=== PATIENT | female | born 1955 | race Caucasian/White ===

== ENCOUNTER → 2017-12-21 | Outpatient (CLI) | payer BC ==
--- NOTE | 2017-12-21 17:16 | XR ---
First digit left hand HISTORY: Trauma and pain 3 views of the first digit of the left hand There is degenerative change at the carpometacarpal joint of the first digit with joint space loss, s ubchondral sclerosis and geode formation. Ossific density present lateral to the joint is well-cortic ated and not felt likely to be acute. Alignment is maintained. Bone mineralization otherwise normal. 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
== END | disposition home or self-care (01) ==
LOC: RADXRMAIN 15:52
PROVIDERS: ATTEND Family Medicine
DX: M19.042 Primary osteoarthritis, left hand (principal)

== ENCOUNTER 2023-08-10 00:16 | Emergency (ER) | payer BC ==
[2023-08-10 00:58] VITALS: TEMP 97.5
[2023-08-10] MEDS: DIPH,PERTUS(ACELL)TETVAC-LF 0.5 ML VIAL IM ONE (01:43)
[2023-08-10] MEDS ORDERED: VANCOMYCIN IV PER PHARMACY 1 EACH MISC MISCELLANE PRN (02:52)
[2023-08-10] MEDS: LEVOFLOXACIN 500MG-D5W PMX 500 MG in DEXTROSE/WATER 1 100ML.BAG IVPB STA (03:01)
--- NOTE | 2023-08-10 03:13 | ED ---
Wound/Laceration HPI - General Chief Complaint: Wound/Laceration Stated Complaint: Fall, head injury, ETOH Time Seen by Provider: 08/10/23 00:34 Source: patient, EMS Mode of arrival: EMS Limitations: altered mental status - History of Present Illness Initial Comments: 67-year-old female presenting from home after a fall from standing. The patient is currently intoxicated, states that she drank "a little bit" tonight. She states that her dog ran between her legs and caused her to fall into the toilet hitting her face. She does not recall the exact time that the incident occurred. She denies any loss of consciousness or use of blood thinners. Patient initially refused c-collar by EMS, she is agreeable at this time and is placed in a c-collar in our facility. She is complaining of no pain. She is unable to see out of her right eye. There is significant discharge and bleeding from the right eye. The pupil is fixed and nonreactive. She is able to see light peripherally. Patient called EMS on her own after she felt blood on her face at home. - Related Data Allergies Allergy/AdvReac Type Severity Reaction Status Date / Time Penicillins Allergy Anaphylaxis Verified 08/10/23 00:34 Review of Systems ROS Statement: Those systems with pertinent positive or pertinent negative responses have been documented in the HPI. ROS Other: All systems not noted in ROS Statement are negative. Past Medical History Past Medical History: No Reported History, Unable to Obtain History of Any Multi-Drug Resistant Organisms: None Reported Past Surgical History: No Surgical Hx Reported, Unable to Obtain Past Psychological History: No Psychological Hx Reported, Unable to Obtain Smoking Status: Current every day smoker, Former smoker Past Alcohol Use History: Occasional Past Drug Use History: Cocaine General Exam General appearance: alert, in no apparent distress Head exam: Present: other (Patient has a 2 cm laceration above the right eyebrow) Eye exam: Present: periorbital swelling, other (There is significant chemosis and disfigurement of the right eye. There is bleeding and watering from the right eye. The patient is unable to open eye on her own. The pupil is fixed dilated nonreactive. No obvious teardrop shaped pupil.). Absent: normal appearance, PERRL, EOMI Pupils: Present: unequal. Absent: normal accommodation Neck exam: Present: normal inspection Respiratory exam: Absent: respiratory distress Cardiovascular Exam: Present: regular rate Neurological exam: Present: alert, altered (Intoxicated, pleasant and cooperative) Course Vital Signs 08/10/23 08/10/23 08/10/23 00:18 02:54 03:43 Temperature 97.5 F L 97.5 F L Pulse Rate 75 64 69 Respiratory 16 19 18 Rate Blood Pressure 191/97 160/78 155/76 O2 Sat by Pulse 96 97 99 Oximetry Medical Decision Making - Medical Decision Making Was pt. sent in by a medical professional or institution (, NICHOLAS, TRACTOR TRAILER MOVING [employer]AN [employer]IVER, urgent care, hospital, or correction...) When possible be specific @ -no Did you speak to anyone other than the patient for history (EMS, parent, family, police, friend...)? What history was obtained from this source @ -EMS Did you review nursing and triage notes (agree or disagree)? Why? @ -I reviewed and agree with nursing and triage notes Were old charts reviewed (outside hosp., previous admission, EMS record, old EKG, old radiological studies, urgent care reports/EKG's, correction records)? Report findings @ -No old charts were reviewed Differential Diagnosis (chest pain, altered mental status, abdominal pain women, abdominal pain men, vaginal bleeding, weakness, fever, dyspnea, syncope, headache, dizziness, GI bleed, back pain, seizure, CVA, palpatations, mental health, musculoskeletal)? @ -Differential includes corneal abrasion, globe rupture, foreign body, traumatic hyphema, this is not an all-inclusive list EKG interpreted by me (3pts min.). @ -As above X-rays interpreted by me (1pt min.). @ -None done CT interpreted by me (1pt min.). @ -CT brain C-spine and facial bones is obtained, formal report is pending. By my interpretation there does appear to be hemorrhaging into the right globe. U/S interpreted by me (1pt. min.). @ -None done What testing was considered but not performed or refused? (CT, X-rays, U/S, labs)? Why? @ -None What meds were considered but not given or refused? Why? @ -None Did you discuss the management of the patient with other professionals (professionals i.e. , NICHOLAS, TRACTOR TRAILER M[employer]ING [employer]IVER, lab, RT, psych nurse, social welfare administrator, vineyard tender, teacher, emergency communications officer, family independence case manager)? Give summary @ -I spoke with Dr. Contreras at [facility] who accepted transfer. I also spoke with their imaging assistant on-call regarding this patient, they advised starting vancomycin and Levaquin Was smoking cessation discussed for >3mins.? @ -No Was critical care preformed (if so, how long)? @ -No Were there social determinants of health that impacted care today? How? (Homelessness, low income, unemployed, alcoholism, drug addiction, transportation, low edu. Level, literacy, decrease access to med. care, [facility], rehab)? @ -No Was there de-escalation of care discussed even if they declined (Discuss DNR or withdrawal of care, Hospice)? DNR status @ -No What co-morbidities impacted this encounter? (DM, HTN, Smoking, COPD, CAD, Cancer, CVA, ARF, Chemo, Hep., AIDS, mental health diagnosis, sleep apnea, morbid obesity)? @ -None Was patient admitted / discharged? Hospital course, mention meds given and route, prescriptions, significant lab abnormalities, going to OR and other pertinent info. @ -67-year-old female presenting for evaluation post fall from standing at home while intoxicated this evening. On presentation the patient is placed in a c- collar. Obvious disfigurement and swelling to the right eye. No obvious teardrop pupil, however a bit is dilated nonreactive. She is able to state light peripherally, otherwise loss of vision. Tetanus is updated. CT brain C- spine and facial bones was obtained. There appears to be hemorrhaging into the right globe. Formal report is still pending. We do not have ophthalmology on- call. Patient will require transfer. Patient is accepted for transfer at [facility]. She is started on vancomycin and Levaquin per ophthalmology at [place]. Patient is agreeable with this plan. I discussed this case with my attending Dr. Baker Undiagnosed new problem with uncertain prognosis? @ -No Drug Therapy requiring intensive monitoring for toxicity (Heparin, Nitro, Insulin, Cardizem)? @ -No Were any procedures done? @ -No Diagnosis/symptom? @ -Globe injury Acute, or Chronic, or Acute on Chronic? @ -Acute Uncomplicated (without systemic symptoms) or Complicated (systemic symptoms)? @ -Complicated Side effects of treatment? @ -No Exacerbation, Progression, or Severe Exacerbation? @ -No Poses a threat to life or bodily function? How? (Chest pain, [place], [place], pneumonia, PE, COPD, DKA, ARF, appy, cholecystitis, CVA, Diverticulitis, Homicidal, Suicidal, threat to staff... and all critical care pts) @ -Yes Disposition Clinical Impression: Injury of globe of eye Disposition: ADMITTED IP TO THIS HOSP Condition: Serious Referrals: None,Stated [Primary Care Provider] - 1-2 days Time of Disposition: 03:12 - Out of Hospital Transfer - Req. Specs Out of Hospital Transfer - Requested Specifics: Other Emergency Center ([facility])
[2023-08-10] MEDS ORDERED: VANCOMYCIN 1,000 MG in SODIUM CHLORIDE 0.9% 250 ML IVPB ONE (03:30)
--- NOTE | 2023-08-10 03:36 | CT ---
EXAM: CT Head and Maxillofacial Without Intravenous Contrast CLINICAL HISTORY: ITS.REASON CT Reason: fall TECHNIQUE: Axial computed tomography images of the head/brain and face without intravenous contrast. CTDI is 12.9 mGy and DLP is 348.7 mGy-cm. This CT exam was performed using one or more of the following dose reduction techniques: automated exposure control, adjustment of the mA and/or kV according to patient size, and/or use of iterative reconstruction technique. COMPARISON: No relevant prior studies available. FINDINGS: Bones/joints: No acute fracture. Soft tissues: Right periportal soft tissue swelling Sinuses: No acute sinusitis. Mastoid air cells: Mild right effusion. Orbits: Right retrobulbar hemorrhage. Abnormally shaped right globe with multifocal hyperdensities. IMPRESSION: Right retrobulbar hemorrhage. Abnormally shaped right globe with multifocal hyperdensities. Suspicious for globe injury with underlying vitreous hemorrhage. <MYCVCSECTION> Communications: 08/10/23 03:41 Verify Receipt Verified receipt with Dr. Strickland on 08/09 03:41 (-04:00)
--- NOTE | 2023-08-10 03:43 | CT ---
EXAM: CT Head Without Intravenous Contrast CLINICAL HISTORY: ITS.REASON CT Reason: fall TECHNIQUE: Axial computed tomography images of the head/brain without intravenous contrast. CTDI is 12.9 mGy and DLP is 348.7 mGy-cm. This CT exam was performed using one or more of the following dose reduction techniques: automated exposure control, adjustment of the mA and/or kV according to patient size, and/or use of iterative reconstruction technique. COMPARISON: No relevant prior studies available. FINDINGS: Brain: No hemorrhage or mass effect. Ventricles: No hydrocephalus. Bones/joints: Unremarkable. Soft tissues: Right periorbital and retrobulbar hemorrhage. Abnormal right globe with vitreous hemorrhage and abnormal shape. Sinuses: No air fluid level. Mastoid air cells: Clear. IMPRESSION: No acute hemorrhage, hydrocephalus, or mass effect. Right periorbital and retrobulbar hemorrhage. Abnormal right globe with vitreous hemorrhage and abnormal shape. EXAM: CT Cervical Spine Without Intravenous Contrast CLINICAL HISTORY: ITS.REASON CT Reason: fall TECHNIQUE: Axial computed tomography images of the cervical spine without intravenous contrast. CTDI is 9.3 mGy and DLP is 270.8 mGy-cm. This CT exam was performed using one or more of the following dose reduction techniques: automated exposure control, adjustment of the mA and/or kV according to patient size, and/or use of iterative reconstruction technique. COMPARISON: No relevant prior studies available. FINDINGS: Vertebrae: No acute fracture. Discs/spinal canal/neural foramina: degenerative changes. Soft tissues: No prevertebral swelling. IMPRESSION: No acute fracture or subluxation.
[2023-08-10 03:50] VITALS: BP 155/76; PULSE 69; RESP 18
== END 2023-08-10 04:12 | disposition other institution (70) ==
LOC: EC 00:16
DX: S01.111A Laceration without foreign body of right eyelid and periocular area, initial encounter (principal); F17.200 Nicotine dependence, unspecified, uncomplicated; Z88.0 Allergy status to penicillin; Z23 Encounter for immunization; W01.0XXA Fall on same level from slipping, tripping and stumbling without subsequent striking against object, initial encounter; Y92.009 Unspecified place in unspecified non-institutional (private) residence as the place of occurrence of the external cause
CPT/HCPCS: 96365; 90471; 72125; 70486; 70450; 90715; 99285; J1956